=== PATIENT | male | born 1965 | race Two or more races ===

== ENCOUNTER 2017-02-11 21:59 | Inpatient (IN) | payer OTHER ==
[~2017-02-11] VITALS: Ht 180.3 cm; Wt 86.0 kg
--- NOTE | ~2017-02-11 | OR ---
Unit #: [id number] #: [id number] Patient: VIC ABDI [id number] [address] [place], [place] [address] [id number] MR#: [id number] NAME: VIC ABDI ROOM: [facility] Date of Procedure: 02/26/2017 Admission Date: 02/12/2017 Surgeon: Rich Catherine M.D. : 1965 Attending Physician: Hetal Vera M.D. OPERATIVE REPORT PREOPERATIVE DIAGNOSIS Left lower extremity wound, status post debridement for necrotizing fasciitis. POSTOPERATIVE DIAGNOSIS Left lower extremity wound, status post debridement for necrotizing fasciitis. PROCEDURES PERFORMED 1. Repeat application of Integra bilayer wound matrix, 11.5 x 9.5 cm. 2. Split-thickness skin grafting application x2, proximal measuring 11 x 9 cm and distal 10.5 x 5.5 cm. 3. Application of wound VAC to the left lower extremity, 26 x 11 cm. WATER TREATMENT SPECIALIST Montse Azul APRN, SAMINA ANESTHESIA General. ESTIMATED BLOOD LOSS Minimal. COMPLICATIONS None apparent. INDICATIONS FOR PROCEDURE Mr. Markham is a 51-year-old gentleman, who has undergone debridement for necrotizing fasciitis on the left lower extremity. This is now resulted in a transmetatarsal amputation with a large soft tissue defect. We had applied Integra at his last trip to the OR over areas of exposed tendon. We now returned to the OR for wound check and possible skin grafting. DESCRIPTION OF PROCEDURE The patient was identified in the preoperative holding area. The operative site was marked. The patient was brought to the operating room, and the patient was placed in a lateral decubitus position. Axillary roll was placed. All bony prominences were padded appropriately. The wound VAC was then removed from the left lower extremity. There appeared to be good adherence of the Integra bilayer except for one area in the posterolateral aspect of the wound. The leg was then prepped and draped Unit #: [id number] #: [id number] Patient: VIC ABDI in a sterile fashion. [place] were removed, and the silicone layer was removed from the Integra. We had good take of the Integra over approximately 60% of the surfaces. The areas of exposed tendon did not have take of the wound matrix, which remained adhered to the silicone bilayer. We were unable to salvage the Integra off the silicone membrane at these locations. The remaining wound was inspected. There was a beefy red granulation tissue both proximal and distal to the previous area of Integra application. These sites were ready for skin grafting. We elected to proceed with skin grafting both proximal and distal to the area of exposed tendon, then a repeat application of Integra over the exposed tendons. The thigh was prepped for skin grafting according to standard technique. A 2 inch guard was placed in a upad dermatome. The graft was harvested initially with a dermatome set at 0.14. This graft was quite thin, but usable. We then marked out another area on the thighs, we did the two areas of graft. The dermatome was then reset at 0.16. A second graft was harvested. This was more robust. Both grafts were meshed through the one-to-one mesher. One of the graft was then taken and placed at the most proximal area, and secured with a stapler around the periphery. The second graft was then taken and placed at the distal aspect of the wound. This was secured with a combination of odalys and 3-0 chromic sutures. We then turned our attention back to the midportion of the wound. The Integra bilayer was opened, which was rinsed and applied over the affected area. The Integra graft was trimmed to 11.5 cm x 9.5 cm. This was stapled in place along the periphery of the skin edge. The extra Integra was utilized distally in the wound to cover the small area, which we do not have a sufficient amount of skin for skin grafting. Adaptic was placed over this skin grafts. We then fashioned a wound VAC of the desired size and applied this over the skin graft and the Integra. Ioban was used to secure the wound VAC sponges. The suction pad was secured and hooked to the wound VAC machine. A good seal was achieved. The wound proximally was dressed with Xeroform, Telfa, and Tegaderm. DISPOSITION Aroused from anesthesia and stable to the recovery room. POSTOPERATIVE PLAN We will keep the wound VAC in place for one week to allow hopefully better incorporation of the Integra over the areas of exposed tendon. We will inspect the skin graft at that time as well. We will plan for return to the operating room next Friday. He may be discharged with a wound VAC in place to follow up with no wound VAC changes to be performed between now and next Friday. Dictated by... Charanjit Vora/kiki TD: 02/26/2017 10:55 JOB #: [id number] Unit #: [id number] #: [id number] Patient: VIC ABDI OPERATIVE REPORT Page 1 of 1 X Rich Catherine MD X PROCEDURE OPERATIVE NOTE
--- NOTE | ~2017-02-11 | A ---
[facility] Nutrition Therapy DATE: 02/24/17 Patient: VIC ABDI Physician: SANDEEP Address: [address] [place] [address] RD Room/Bed: [address] [place] [address], Zip: [place] [address] Admit Date: 02/12/17 Date of : [birth year] Height: 5 11 Weight: 189 86 NUTRITIONAL ASSESSMENT: REASON: LOS 51 y/o male admitted for wet gangrene (L) foot PMH: T2DM Anthropometrics: ht: 5'11" wt: 189# (86 kg) BMI 26 Labs: Cl- 99, Glu 152, Alb 2.4, Accuchecks 271, HgbA1c 9.5 Meds: novolog, levemir, zosyn, ferrous gluconate, zofran, NaCl I/O & Bowel function: 1640/2400. BM 02/23 Skin Integrity: surgical site/wound vac- LT foot Estimated Nutrition Needs: Increased 2' wound healing Assessment: Chart reviewed, events noted. Pt seen for LOS. Pt is colombian-speaking only. RD architecture internship visited pt at bedside and spoke with pt using translator interpreter phone. Pt reports having a good appetite and eating "anything and everything". Pt reports mostly eating out when he is at home. He does check his blood sugar "every so often". RD architecture internship provided written and verbal colombian diet education regarding type 2 diabetes nutrition therapy. Pt reported no questions at this time. RD will remain available. Dx: Uncontrolled type 2 diabetes r/t lifestyle, lack of nutrition education AEB accuchecks 252-271, HgbA1c 9.5 Intervention: 1. Diabetes diet education 2. Consistent carbohydrate diet Monitoring, Evaluation and Goals: 1. Weight; maintain healthy weight, prevent weight gain 2. Labs; glucose Recommendations: 1. Continue consistent carbohydrate diet. Encourage compliance of diet. 2. Follow diabetes nutrition therapy education given when d/c'd home. RD will f/u per protocol as pt is at mild nutritional risk. [facility] Nutrition Therapy DATE: 02/24/17 Patient: VIC ABDI Physician: SANDEEP Address: [address] [place] [address] RD Room/Bed: [address] [place] [address], Zip: [place] [address] Admit Date: 02/12/17 Date of : [birth year] Height: 5 11 Weight: 189 86 Respectfully, ULISES WILKERSON, Community Pharmacist Yang Polanco MS, RD, LD Food and Nutritional Services [facility] cc: client file
--- NOTE | ~2017-02-11 | HP ---
Unit #: [id number] #: [id number] Patient: VIC ABDI [id number] [address] [place], [place] [address] [id number] I MR#: [id number] NAME: VIC ABDI ROOM: 340 Age: 51 Sex: M Admission Date: 02/12/2017 : 1965 Attending Physician: Hetal Vera M.D. Primary Care Physician: No Primary Care Physician HISTORY AND PHYSICAL CHIEF COMPLAINT Wet gangrene of the left foot. HISTORY This pleasant 51-year-old type 2 diabetic male is admitted for wet gangrene of the left foot. About 5 days ago the patient "pinched" his left foot. I believe he was driving and was using a clutch, per the ER physician. Four days ago he began to experience redness of the left foot and, more recently, blackened areas over the dorsum of the left foot. Notes feeling feverish and sweaty with the above. He presented to this emergency department with a temperature of 101.3. On examination the patient has necrotic wound over the dorsum of the left forefoot but with purulent material also being expressed from the plantar surface of the left forefoot. X-ray shows large amount of subcutaneous gas. Labs are notable for sodium of 122, which corrects to about 128, as the patient's serum glucose is about 400. White blood count of 25.8. In the ER he was bolused with a liter of saline, given Zosyn and vancomycin, 8 units of IV regular insulin and Tylenol. A call was made to me to admit the patient for medical management, but also a call was made to orthopedic surgery, who will be seeing the patient this morning. PAST MEDICAL HISTORY 1. 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 2. Some sort of testicular surgery. ALLERGIES None. HOME MEDICATIONS The patient was taking an unknown antibiotic that he had at home. FAMILY HISTORY Negative for heart disease or diabetes. SOCIAL HISTORY The patient is originally from [place]. He is living alone. Stopped smoking about 20 days ago. Does not drink alcohol. REVIEW OF SYSTEMS Unit #: [id number] #: [id number] Patient: VIC ABDI Review of systems is difficult to obtain due to language barrier. PHYSICAL EXAMINATION GENERAL: Very pleasant 51-year-old male, currently in no acute distress. VITAL SIGNS: Temperature 101.3, pulse 114, respirations 16. Current blood pressure is 101/67, respirations 22, O2 saturation 99% on room air. HEENT: Eyes-PERRLA. Extraocular muscles are intact. Pharynx is benign. NECK: Supple without adenopathy or thyromegaly. CHEST: Clear. CARDIAC: Normal S1, S2 without murmur. ABDOMEN: Bowel sounds are present. No hepatosplenomegaly, tenderness or masses. EXTREMITIES: Notable for necrotic appearing wound over the dorsum of the left mid forefoot but extensive swelling and redness up into the lower calf region. There is also a purulent materia coming out of a wound over the plantar aspect of the left foot. Right foot without ulcers, good pedal pulse. NEUROLOGIC EXAM: The patient is awake, alert, oriented. Cranial nerves are intact. Equal strength throughout. DIAGNOSTIC STUDIES ADMISSION LABS: Hematocrit 35.1, white blood count of 25.8, normal platelet count. SMA-12 - Glucose is 377, sodium 122, which corrects to about 128. Chloride is 84. Albumin is 2.5. AST is 48, ALT 44, alkaline phosphatase 120. Lactic acid is pending. CARDIOVASCULAR: EKG - Sinus tachycardia, rate 115. IMAGING: X-ray of the left foot shows large collection of air dorsum of the foot and ankle. ASSESSMENT 1. Wet gangrene of the left foot with early sepsis. 2. Uncontrolled type 2 diabetes mellitus. 3. Hyponatremia. Sodium, however, actually corrects to 128. PLANS 1. Aggressive IV fluids. 2. Clindamycin, vancomycin and Zosyn. 3. Glucose control. 4. Orthopedic surgeon has been consulted and will be seeing the patient in the morning. Dictated by Charanjit Harrell/gabriella TD: 02/12/2017 07:52 JOB #: [id number] Unit #: [id number] #: [id number] Patient: VIC ABDI HISTORY AND PHYSICAL Page 1 of 1 X Kerry Fernandez MD X HISTORY AND PHYSICAL
--- NOTE | ~2017-02-11 | CO ---
Unit #: [id number] #: [id number] Patient: VIC ABDI [id number] [address] [place], [place] [address] [id number] I MR#: [id number] NAME: VIC ABDI ROOM: [facility] Age: 51 Sex: M Admission Date: 02/12/2017 : 1965 Attending Physician: Hetal Vera M.D. Primary Care Physician: No Primary Care Physician Consultation Date: 02/19/2017 CONSULTATION REPORT The patient was admitted to Dr. Hetal Vera. REASON FOR CONSULTATION Antibiotic management. HISTORY OF PRESENT ILLNESS This is a 51-year-old diabetic male who has uncontrolled blood sugars that was admitted to the hospital greater than one week ago after he had some discoloration in his foot. It initially became red and then became more blackened. This was over the top of his foot and he said that he felt he may have had some subjective fevers; however, he never took his temperature. Patient reports to me that he denied any trauma but did feel a pinching sensation on the bottom of his foot. When he came to the emergency room, he was noted to have a fever of greater than 101.3 degrees Fahrenheit. Patient also was noted to have a large necrotic wound with wet gangrene and was taken to the OR for necrotizing fasciitis. It appears patient was started on vancomycin, Zosyn, and clindamycin. He has had multiple organisms since that have been isolated including group F strep, MSSA, and enterobacter. Infectious disease was consulted for antibiotic management. Patient is currently awaiting repeat I and D of his wounds, possible transmetatarsal amputation and wound VAC change. PAST MEDICAL HISTORY 1. Diabetes approximately 11 years ago with peripheral neuropathy. 2. Per the chart, he had a testicular surgery. However, patient did not report this to me during our discussion. ALLERGIES No known allergies. MEDICATIONS The patient is currently on cefepime. For other medications, please refer to patient's MAR. SOCIAL HISTORY Patient is from [place], but currently lives in the [place]. He has no tobacco for approximately one month. He has no alcohol abuse or reports any IV drug use. REVIEW OF SYSTEMS Patient denies any current fevers, chills, headache, shortness of breath, nausea, vomiting, diarrhea, or pain at this time. PHYSICAL EXAMINATION Unit #: [id number] #: [id number] Patient: VIC ABDI VITAL SIGNS: Temperature (1) , pulse is 85, blood pressure 127/51, respiratory rate 16. GENERAL: This is a no apparent distress male who is resting in the bed comfortably. HEENT: His pupils are equal. NECK: Supple. CARDIOVASCULAR: S1, S2. Regular rate and rhythm. PULMONARY: Clear to auscultation bilaterally with no wheezes or rhonchi noted. ABDOMEN: Positive bowel sounds. Soft and nontender. EXTREMITIES: Left lower extremity currently in a wound VAC and ADILIA dressing. DIAGNOSTIC STUDIES LABORATORY: BUN 8, creatinine 0.6, sodium 135, potassium 4, chloride 99, CO2 of 29. Bilirubin 0.5, AST 48, ALT 44, alkaline phosphatase 120 on admission. Lactic acid is 1.2 White blood cell count 13.6, which is improved from 25.8 o admission. Hemoglobin 9.4, hematocrit 27.8, platelets 686,000. Sed rate is greater than 120. Urinalysis was negative. February 17 foot cultures were negative to date. February 12 foot culture and leg culture showed MSSA and group F strep. February 11 foot cultures grew enterobacter and MSSA. IMPRESSION This is a 51-year-old diabetic male, who presented one and a half days after he began with redness and skin changes in his left foot that began to become dark in appearance. The patient was admitted to the hospital and found to have wet gangrene to his left foot with necrotizing fasciitis. The patient has been in the OR multiple times and he has polymicrobial bacteria including MSSA and group F strep which appeared to be the most prominent organisms. Patient did have Enterobacter but this was done pre operating room and I am not sure the significance of this organism. The patient is well covered with cefepime at this time and he was covered with clindamycin upon admission. Patient appears to not be septic at this time. His white blood cell count has significantly improved. He has no current fever and his blood pressure is stable. Patient's pathology report, however, was consistent with gangrenous necrosis even at the surgical resection margins and patient is to go back to the operating room today. I am unclear if patient may have osteomyelitis. At this time, will continue cefepime. Anticipate that patient may need four to six weeks of antibiotic therapy but more will be determined after discussion with orthopedics and surgery today. This case will be discussed with Dr. Jose Low. He will evaluate this patient today. Patient's history and exam was done via the per diem interpreter phone with ID #[id number]. Thank you for allowing us to participate in the care of this patient and further recommendations to follow pending patient's clinical course. Dictated by... Yesy Cotter A.P.R.N. [facility]/irineo TD: 02/19/2017 10:17 Unit #: [id number] #: [id number] Patient: VIC ABDI JOB #: [id number] CONSULTATION REPORT Page 1 of 1 X X CONSULTATION REPORT
--- NOTE | ~2017-02-11 | OR ---
Unit #: [id number] #: [id number] Patient: VIC ABDI [id number] [address] [place], [place] [address] [id number] I MR#: [id number] NAME: VIC ABDI ROOM: [facility] Date of Procedure: 02/14/2017 Admission Date: 02/12/2017 Surgeon: Rich Catherine M.D. : 1965 Attending Physician: Hetal Vera M.D. OPERATIVE REPORT PREOPERATIVE DIAGNOSES Left foot and distal tibia necrotizing fasciitis, status post excisional debridement. POSTOPERATIVE DIAGNOSES Left foot and distal tibia necrotizing fasciitis, status post excisional debridement. PROCEDURES PERFORMED 1. Repeat sharp excisional debridement to fascia, left lower extremity. 2. Decompression of recurrent plantar abscess. 3. Application of wound VAC, 34 x 10 cm. STAMPING MACHINE OPERATOR Montse Azul. ANESTHESIA General. ESTIMATED BLOOD LOSS 15 mL. DRAINS Wound VAC to 125 mmHg. COMPLICATIONS None apparent. INDICATIONS FOR PROCEDURE Mr. Markham is a 51-year-old gentleman with gas gangrene or necrotizing fasciitis of the left lower extremity. He has undergone an excision and debridement leaving a large residual soft tissue defect. He now returns to the operating room for repeat debridement and wound VAC change. DESCRIPTION OF PROCEDURE The patient was identified in the preoperative holding area. The operative site was marked. The patient was brought to the operating room and placed supine on the operating table. A general anesthetic was induced. The wound VAC was removed. The left leg was prepped and draped in sterile fashion. The wound was irrigated with sterile saline via pulsatile lavage. The Unit #: [id number] #: [id number] Patient: VIC ABDI excisional debridement was performed with Metzenbaum scissors down to level of fascia. Minimal further debridement was required. Note is made of the fourth digit at this point has appeared dusky and likely nonviable. I was able to express purulent fluid still from the plantar aspect of the foot. Metzenbaum scissors were passed into the plantar space and decompressed the abscess. We obtained a small amount of purulent or cloudy fluid, but was much improved from his initial operation. Once we had adequately debrided away all necrotic and nonviable tissue, a new wound VAC was placed utilizing 2 silver VAC sponges, wound VAC size was 34 x 10 cm. DISPOSITION Aroused from anesthesia and transported to the recovery room in stable condition. POSTOPERATIVE PLAN The patient will require repeat debridement. His fourth toe, we will continue to observe, but likely will need fourth toe amputation. In this instance, we will likely proceed with resection of at least the remaining lateral digits and possibly even a transmetatarsal amputation in the future. However, his lower extremity may be salvageable and amenable to grafting. We will continue to follow the evolution of his wound. Dictated by... Rich Catherine M.D. CEDRIC/kiki TD: 02/15/2017 08:01 JOB #: [id number] OPERATIVE REPORT Page 1 of 1 X Rich Catherine MD PROCEDURE OPERATIVE NOTE
--- NOTE | ~2017-02-11 | CR72 ---
[facility] A Service of [facility] RADIOLOGY TEXT RESULTS PATIENT: VIC ABDI LOCATION: [facility] 340-01 : [birth year] UNIT #: [id number] AGE: [address]: Kerry Fernandez MD SEX: M ORDER DR: [id number] [facility] [address]. [place], [place] [address] [id number] I MR#: [id number] Acc #: [id number] NAME: VIC ABDI : 1965 SEX: M STUDY DATE/TIME: 02/11/2017 23:20 UNIT: CEDOF ROOM: [id number] STUDY DESCRIPTION: CR Chest Single View Portable Attending Physician: Kerry Fernandez M.D. Ordering Physician: Gerardo Baugh M.D. Primary Care Physician: Primary Care Physician No MEDICAL IMAGING REPORT This report is preliminary unless electronic signature is present EXAM Portable chest INDICATIONS Shortness of air for 4 days. FINDINGS A portable view of the chest was obtained. The heart size and vascularity are normal and the lungs are clear. The bones are unremarkable. IMPRESSION No active disease. Dictated by... Fer Spangler M.D. THIS IS AN ELECTRONICALLY VERIFIED REPORT Fer Spangler M.D. at 02/12/2017 5:49 AM FEL/anitha TD: 02/12/2017 02:55 JOB #: [id number] MEDICAL IMAGING REPORT Page 1 of 1 COPY
--- NOTE | ~2017-02-11 | CR126 ---
[facility] A Service of [facility] RADIOLOGY TEXT RESULTS PATIENT: VIC ABDI LOCATION: A 340-01 : [birth year] UNIT #: [id number] AGE: [address]: Kerry Fernandez MD SEX: M ORDER DR: [id number] [facility] [address] [facility]. [place], [place] [address] [id number] I MR#: [id number] Acc #: [id number] NAME: VIC ABDI : 1965 SEX: M STUDY DATE/TIME: 02/11/2017 23:22 UNIT: CEDOF ROOM: [facility] STUDY DESCRIPTION: CR Foot Complete Min 3 View Lt Attending Physician: Kerry Fernandez M.D. Ordering Physician: Gerardo Baugh M.D. Primary Care Physician: Primary Care Physician No MEDICAL IMAGING REPORT This report is preliminary unless electronic signature is present EXAM Left foot INDICATION Left foot pain with diabetic wound in foot, symptoms for 4 days. FINDINGS 3 views of the left foot were obtained. There is a large amount of abnormal air in the dorsal soft tissues of the foot and ankle. The air is in multiple levels. It extends over an area of at least 16-17 cm in length. There is soft tissue swelling. The bones are normal. IMPRESSION Large collection of air in the subcutaneous tissue of the dorsum of the foot and ankle consistent with an infection. The bones are unremarkable. Dictated by... Fer Spangler M.D. THIS IS AN ELECTRONICALLY VERIFIED REPORT Fer Spangler M.D. at 02/12/2017 5:49 AM LALIT/teri TD: 02/12/2017 02:54 JOB #: [id number] MEDICAL IMAGING REPORT Page 1 of 1 COPY
--- NOTE | ~2017-02-11 | OR ---
Unit #: [id number] #: [id number] Patient: VIC WAGNER [id number] [address] [place], [place] [address] [id number] I MR#: [id number] NAME: VIC WAGNER ROOM: 340 Date of Procedure: 02/12/2017 Admission Date: 02/12/2017 Surgeon: Rich Catherine M.D. : 1965 Attending Physician: Hetal Vera M.D. Primary Care Physician: Primary Care Physician No OPERATIVE REPORT PREOPERATIVE DIAGNOSES 1. Left foot wet gangrene. 2. Ascending necrotizing fasciitis. POSTOPERATIVE DIAGNOSES 1. Left foot wet gangrene. 2. Ascending necrotizing fasciitis. 3. Deep plantar intermetatarsal abscesses. 4. Infectious extensor tenosynovitis. PROCEDURES PERFORMED 1. Left third toe metatarsophalangeal joint disarticulation. 2. Sharp excisional debridement of foot and distal leg down to the fascia. 3. Irrigation and debridement of multiple forefoot abscesses including plantar and intermetatarsal abscesses. 4. Application of wound VAC measuring 34 cm x 10 cm. ELEMENTARY SCHOOL PRINCIPAL ANESTHESIA General. ESTIMATED BLOOD LOSS 50 mL. COMPLICATIONS None apparent. DRAINS Wound VAC to 125 mmHg. INDICATIONS FOR PROCEDURE Mr. Wagner is a 51-year-old gentleman with nearly 1-week history of progressive erythema and eventually a necrotic and bullous changes to the left foot and distal tibia. He noted a wound on which became progressively red over the weekend. He then notes that this was becoming black and necrotic appearing yesterday. He states that it began rapidly progressing over the past 24 hours and even this morning becoming progressively necrotic with then blistering changes over the foot. His plain film radiographs demonstrated gas-forming organism up to the mid Unit #: [id number] #: [id number] Patient: VIC WAGNER distal tibia. Overall appearance is consistent with gas-forming organism and ascending necrotizing fasciitis. He had extensive necrosis of the forefoot with a large area, which was then essentially encompassing the entirety of the forefoot which was not necrotic and extending to a wound on the plantar aspect of the third toe. We discussed incision and debridement of all necrotic nonviable tissue as indicated. He elected to proceed. DESCRIPTION OF PROCEDURE The patient was identified in the preoperative holding area. The operative site was marked. The patient was brought to the operating room and placed supine on the operating table. He was already on standing IV antibiotics. General anesthetic was induced. The left leg was prepped and draped in sterile fashion. A tourniquet was not employed. The skin incision was marked out. This initially started with excising area around the dorsum of the foot and the third toe. This was going to include essentially of third toe MTP joint disarticulation. The skin was incised sharply and a large ellipse utilized to excise all the clearly necrotic tissue. The third toe was dissected down to the MTP joint sharply with a 10-blade knife. Immediately upon incising the skin, there was a large volume of purulent fluid emanating from the subcutaneous tissues. The skin and subcutaneous tissues were clearly necrotic and purulent. The third toe was again was disarticulated at the MTP joint, passed off the operative field. The skin, subcu, and fascia were excised over the dorsum of the foot, passed off. We then carried this ellipse into an incision up the proximal lateral distal leg. All along this tract, we encountered purulent fluid and clearly necrotic changes through the subcutaneous tissues and fascia. The wound was further inspected. Medial and lateral to our area of initial excision, there was clearly dusky, but frankly essentially necrotic skin. This was excised back to healthy border, which eventually encompassed the entirety again of the dorsum of the forefoot. We took our excision gradually excising skin until we encountered more normal healthy-appearing tissue free from necrotic changes. The fascia was excised as needed up the distal tibia as well. The common extensors were necrotic. There was extensor tenosynovitis and fluctuance extending up to the extensors. These were excised where necessary. The extensor retinaculum was involved as well and was removed leaving exposed extensor tendons. We carried this around the posterolateral aspect as far as necessary. Once we completed our debridement, we opened further plantarly on the foot and opened the foot over the third metatarsal. There were still abscess and fluctuance on the plantar aspect of foot. This was decompressed. There was intermetatarsal abscesses and purulence, which was decompressed as well. Once we had adequately excised all necrotic nonviable tissue, the wound was irrigated with pulsatile lavage. The overall appearance was greatly improved, but left with a large soft tissue defect measuring 34 cm from the plantar foot up over the third metatarsal up to the distal extent of the leg. It measured 10 cm from medial to lateral. A wound VAC was then fashioned to the desired size and shape. Stapler was used to help provisionally stabilized the wound VAC against the skin edges and multiple wound VAC sponges to one another. We utilized two large silver impregnated dressing sponges. Ioban dressing was used to seal the wound. The wound VAC suction pad was then attached and the machine hooked up. We achieved a good seal in the seal check. The leg was then wrapped with an Otto wrap. DISPOSITION Stable to recovery room. Unit #: [id number] #: [id number] Patient: VIC WAGNER POSTOPERATIVE PLAN He will require repeat I and D and wound VAC change on Friday. We discussed with them that it is likely that he may need a below-knee amputation. If his limb is preservable, it will likely require extensive grafting sacrificed during the initial debridement. Dictated by... Charanjit Vora/kiki TD: 02/13/2017 16:27 JOB #: [id number] OPERATIVE REPORT Page 1 of 1 X Rich Catherine MD X PROCEDURE OPERATIVE NOTE
--- NOTE | ~2017-02-11 | CR72 ---
[facility] A Service of [facility] RADIOLOGY TEXT RESULTS PATIENT: VIC ABDI LOCATION: A : [birth year] UNIT #: [id number] AGE: [address]: Hetal Vera MD SEX: M ORDER DR: [id number] [place], [place] [address] [id number] I MR#: [id number] Acc #: [id number] NAME: VIC ABDI : 1965 SEX: M STUDY DATE/TIME: 02/15/2017 13:49 UNIT: A ROOM: [facility] STUDY DESCRIPTION: CR Chest Single View Portable Attending Physician: Hetal Vera M.D. Ordering Physician: Hetal Vera M.D. Primary Care Physician: No Primary Care Physician MEDICAL IMAGING REPORT This report is preliminary unless electronic signature is present EXAM Single view chest INDICATIONS Shortness of air for 8 days. FINDINGS Single portable AP view of the chest compared to 02/11/2017. Heart and mediastinal contours are unchanged and lung volumes are low. No focal consolidation. IMPRESSION Low lung volumes; however, no acute findings. Dictated by... Pedro Luis Winters M.D. THIS IS AN ELECTRONICALLY VERIFIED REPORT Pedro Luis Winters M.D. at 02/16/2017 5:13 PM ELDA/rosie TD: 02/15/2017 17:44 JOB #: [id number] MEDICAL IMAGING REPORT Page 1 of 1 COPY
--- NOTE | ~2017-02-11 | TOC ---
Unit #: [id number] #: [id number] Patient: VIC ABDI [id number] [address] [address] [id number] I MR#: [id number] NAME: VIC ABDI ROOM: [facility] Age: 51 Sex: M Admission Date: 02/12/2017 : 1965 Attending Physician: Hetal Vera M.D. TRANSFER OF CARE SUMMARY PRINCIPAL DIAGNOSES 1. Sepsis secondary to polymicrobial left foot and leg wet gangrene with associated necrotizing fasciitis. Causative organisms include MSSA group F streptococcus and Enterobacter cloacae. 2. Diabetes mellitus type 2, uncontrolled, with hemoglobin A1c of 9.5. 3. Diabetic peripheral neuropathy. 4. Hyponatremia, now resolved. 5. Hypokalemia. 6. Iron deficiency anemia. 7. Thrombocytosis secondary to iron deficiency anemia in combination with a reactive component. 8. Fever secondary to atelectasis. 9. Moderate protein malnutrition. 10. Mild transaminitis. 11. Mild vitamin B12 deficiency with a vitamin B12 level of 332. CONSULTANTS 1. Dr. Catherine, Orthopedic Surgery. 2. Dr. Low, Infectious Disease. PROCEDURES 1. Left third toe metatarsophalangeal joint disarticulation, sharp excisional debridement of foot and distal leg down to fascia, irrigation and debridement of multiple forefoot abscesses including plantar and intermetatarsal abscesses, and application of wound V.A.C. measuring 34 x 10 cm on February 12, 2017. 2. Sharp excisional debridement to fascia of the left lower extremity, decompression of recurrent plantar abscess, and application of wound V.A.C. 34 x 10 cm on February 14, 2017. 3. Left fourth and fifth toe metatarsophalangeal disarticulation, debridement of skin and subcutaneous tissue, and wound V.A.C. change of 34 x 10 cm on February 17, 2017 4. Left foot transmetatarsal amputation and left lower extremity wound V.A.C. 30 x 10 cm on February 19, 2017. 5. Debridement to fascia of left lower extremity including extensor tendons and extensor retinaculum, application of Integra bilayer wound matrix measuring 12.5 x 8 cm and wound V.A.C. application 28.5 x 8 cm on February 21, 2017. 6. Chest x-ray on February 11, 2017, without acute findings. 7. X-ray of left foot on February 11, 2017, with a large collection of air in the subcutaneous tissue in the dorsum of the foot and ankle. 8. Chest x-ray on February 15, 2017, with low lung volumes. CLINICAL HISTORY AND HOSPITAL COURSE Unit #: [id number] #: [id number] Patient: VIC ABDI is a 51-year-old , [place]er-speaking only male, who presented with swelling and redness of his left foot. Prior to presentation, this redness was associated with a blackening over the dorsal aspect of the foot. In the emergency department, patient was found to be febrile and have a white blood cell count greater than 25%. He was also found to be hyponatremic and his serum glucose was greater than 400. Patient was subsequently admitted. Patient's wound was examined again the next day, and patient was having ascending gas formation of the left lower extremity with worsening necrosis of associated skin. Dr. Catherine was called emergently, and patient subsequently underwent the first of multiple I and Ds of the wound. Intraoperative cultures grew MSSA Enterobacter cloacae and group F strep. Antibiotics were changed to cefepime for a while, and ultimately Infectious Disease was consulted given concern about perhaps some underlying osteomyelitis. Patient has been changed back to Zosyn with plans for continued IV antibiotics for at least two weeks given patient currently has exposed tendon. I will note, patient underwent multiple I and Ds during hospitalization and ultimately required transmetatarsal amputation due to infection of his associated toes. Pathology for this amputation is currently pending. The plan is for patient to be maintained with Integra for the next five days and ultimately to have skin graft placed on February 26 of next week. As noted above, the patient was hyperglycemic upon presentation and has uncontrolled diabetes. He has been maintained on insulin here, and sugars have been relatively stable. Patient was also found to have iron deficiency anemia in combination with some thrombocytosis. Hemoglobin for the most part has been stable, and he will be maintained on iron supplementation. I will note, his thrombocytosis has worsened throughout hospitalization, but I suspect this is reactive and can be followed closely. He has been maintained on DVT prophylaxis. Patient was hyponatremic as noted above, but this resolved with IV hydration and improved sugar control. Further hospital course to be dictated as an addendum. Dictated by... Hetal Vera M.D. EVE/coco TD: 02/23/2017 22:04 JOB #: [id number] Unit #: [id number] #: [id number] Patient: ABDI,RAUL TRANSFER OF CARE SUMMARY Page 1 of 1 X Hetal Vera MD X TRANSFER OF CARE SUMMARY
--- NOTE | ~2017-02-11 | OR ---
Unit #: [id number] #: [id number] Patient: VIC ABDI [id number] [address] [address] [id number] I MR#: [id number] NAME: VIC ABDI ROOM: [facility] Date of Procedure: 02/12/2017 Admission Date: 02/12/2017 Surgeon: Rich Catherine M.D. : 1965 Attending Physician: Hetal Vera M.D. Primary Care Physician: Primary Care Physician No OPERATIVE REPORT ADDENDUM The patient underwent sharp excisional debridement down to the level of fascia across the entirety of the wound utilizing a 15-blade knife as well as rongeurs and Metzenbaum scissors. The size of the debrided area was a 34 x 10 cm. For further details, please see the previously dictated full operative report. Dictated by... Charanjit Vora/kiki TD: 02/21/2017 15:38 JOB #: [id number] OPERATIVE REPORT Page 1 of 1 X Rich Catherine MD X PROCEDURE OPERATIVE NOTE
--- NOTE | ~2017-02-11 | EKG ---
PATIENT: VIC ABDI UNIT #: [id number] Ventricular Rate: 102 BPM Atrial Rate: 102 BPM P-R Interval: 146 ms QRS Duration: 106 ms Q-T Interval: 346 ms QTC Calculation(Bezet): 450 ms P [place]: 68 degrees Calculated R [place]: 70 degrees Calculated T [place]: 47 degrees Diagnosis Line: Sinus tachycardia Diagnosis Line: Incomplete right bundle branch block Diagnosis Line: Borderline ECG Diagnosis Line: Diagnosis Line: Confirmed by CARLOS WALTERS MD ([id number]) on Diagnosis Line: 02/13/2017 10:39:27 AM INTERPRETING MD: SELENA DOCKERY
--- NOTE | ~2017-02-11 | OR ---
Unit #: [id number] #: [id number] Patient: VIC ABDI [id number] [address] [place], [place] [address] [id number] I MR#: [id number] NAME: VIC ABDI ROOM: [facility] Date of Procedure: 02/19/2017 Admission Date: 02/12/2017 Surgeon: Rich Catherine M.D. : 1965 Attending Physician: Hetal Vera M.D. OPERATIVE REPORT PREOPERATIVE DIAGNOSES 1. Left foot and lower extremity necrotizing fasciitis. 2. Residual large soft tissue defect over the dorsum of the foot and distal tibia secondary to the above. 3. Dry gangrene, left second toe. 4. Exposed bone of third and fourth metatarsal heads. PROCEDURES PERFORMED 1. Left foot transmetatarsal amputation. 2. Left lower extremity wound VAC change 30 x 10 cm. DONOR CENTER TECHNICIAN Sixto Macedo, PGY-2. INDICATIONS FOR PROCEDURE Mr. Markham returns to the operating room today for repeat debridement and wound VAC change. We also discussed a transmetatarsal amputation. At his last debridement, he underwent resection of the remaining lateral digits including the 4th and 5th toes. He now has dry gangrene of the second toe as he will only have the hallux left. We have now discussed the transmetatarsal amputation, which allows to address the exposed bone over the metatarsal heads as well. He elected to proceed. DESCRIPTION OF PROCEDURE The patient was identified in the preoperative holding area. The operative site was marked. The patient was brought to the operating room and placed supine on the operating table. He is on standing antibiotics. The wound VAC was removed. The left leg was prepped and draped in sterile fashion. The wound bed was healthy and clean. No further debridement of skin or fascia was required. He has good granulation tissue over the majority of the wound from the extensor tendons. He has exposed bone as noted above in the third and fourth metatarsal heads. The second toe was initially disarticulated through the MTP joint direct visualization of the MTP joint itself. This was then passed off the operative field. A hallux MTP joint disarticulation was then performed as well. We then exposed the visual metatarsal shafts. A small microsagittal saw was used to perform an osteotomy along the metatarsal shaft of each digit bevelling these in a plantar direction. The metatarsals were then released from soft tissue and passed off the Unit #: [id number] #: [id number] Patient: VIC ABDI operative field. The sesamoids were removed as well. Soft tissue was debrided in the plantar flap. We were able to loosely close our previous split in the plantar soft tissue with 2 nylon sutures. obtain some coverage over the metatarsals now with the plantar skin. This was loosely tacked to the dorsum of the foot as well. We then fashioned a wound VAC to fit the wound, which measured 30 x 10 cm. The wound VAC was sealed with Ioban and suction pad attached. We achieved a good seal. The leg was then covered with an Otto wrap. DISPOSITION Stable to the recovery room. PLAN He will return to the operating room on Friday for repeat wound check and wound VAC change and possible placement of Integra skin graft substitute over the exposed extensor tendons. Dictated by... Charanjit Vora/kiki TD: 02/20/2017 11:35 JOB #: [id number] OPERATIVE REPORT Page 1 of 1 X Rich Catherine MD X PROCEDURE OPERATIVE NOTE
--- NOTE | ~2017-02-11 | OR ---
Unit #: [id number] #: [id number] Patient: VIC ABDI [id number] [address] [address] [id number] I MR#: [id number] NAME: VIC ABDI ROOM: [facility] Date of Procedure: 02/21/2017 Admission Date: 02/12/2017 Surgeon: Rich Catherine M.D. : 1965 Attending Physician: Hetal Vera M.D. Primary Care Physician: Primary Care Physician No OPERATIVE REPORT PREOPERATIVE DIAGNOSES 1. Status post left lower extremity debridement for necrotizing fasciitis. 2. Residual left leg wound 28.5 x 8 cm secondary to the above. POSTOPERATIVE DIAGNOSES 1. Status post left lower extremity debridement for necrotizing fasciitis. 2. Residual left leg wound 28.5 x 8 cm secondary to the above. PROCEDURES PERFORMED 1. Debridement to fascia in the left lower extremity including extensor tendons and extensor retinaculum. 2. Application of Integra bilayer wound matrix, 12.5 x 8 cm. 3. Wound VAC application, 28.5 x 8 cm. CONCRETE WORKER Montse Azul. ANESTHESIA General. ESTIMATED BLOOD LOSS Minimal. COMPLICATIONS None apparent. IMPLANTS Integra bilayer wound matrix 12.5 x 10 cm, trimmed down to 12.5 x 8 cm. INDICATIONS FOR PROCEDURE Mr. Markham returns to the operating room today for planned repeat debridement and application of an Integra over areas of exposed extensor tendon and extensor retinaculum. He is status post transmetatarsal amputation at his last operative intervention. DESCRIPTION OF PROCEDURE The patient was identified in the preoperative holding area. The operative site was marked. The patient on standing IV antibiotics. He was brought to the operating room and placed supine on the operating table. A general anesthetic was induced. The wound VAC was removed. The wound was inspected. The areas which were closed previously on the TMA were healing well. The flap has good adherence to the underlying soft Unit #: [id number] #: [id number] Patient: VIC ABDI tissues, where we have brought this plantar flap up over the metatarsals on the dorsum of the foot. There was good granulation tissue throughout the wound. There was mild fibrinous exudative type debris over the extensor tendons and extensor retinaculum. This was debrided with curettes, Metzenbaum scissors, and rongeur. The Integra bilayer was then opened and rinsed to remove the storage solution. The wound was irrigated with sterile saline via bulb lavage. The graft was stapled in place around its periphery covering all exposed extensor tendons. Wound VAC at the desired size and then fashioned to fit the affected area again measured 28.5 x 8 cm. This was sealed with Ioban. The suction pad was attached and hooked up to the wound VAC at 100 mmHg suction. Good seal was achieved. DISPOSITION Stable to the recovery room. Dictated by... Rich Catherine M.D. CEDRIC/kiki TD: 02/21/2017 11:56 JOB #: [id number] OPERATIVE REPORT Page 1 of 1 X Rich Catherine MD PROCEDURE OPERATIVE NOTE
--- NOTE | ~2017-02-11 | OR ---
Unit #: [id number] #: [id number] Patient: VIC ABDI [id number] [address] [place], [place] [address] [id number] I MR#: [id number] NAME: VIC ABDI ROOM: [facility] Date of Procedure: 03/05/2017 Admission Date: 02/12/2017 Surgeon: Rich Catherine M.D. : 1965 Attending Physician: Hetal Vera M.D. Primary Care Physician: Primary Care Physician No OPERATIVE REPORT PREOPERATIVE DIAGNOSIS Left distal tibia wound from necrotizing fasciitis debridement. POSTOPERATIVE DIAGNOSIS Left distal tibia wound from necrotizing fasciitis debridement. PROCEDURES PERFORMED 1. Excisional debridement of skin and subcutaneous tissue of the left distal tibia and foot wound. 2. Wound VAC application, 26 x 9 cm. LIVESTOCK TRADER Montse Azul APRN, SAMINA ANESTHESIA General. ESTIMATED BLOOD LOSS Negligible. COMPLICATIONS None apparent. DRAINS Wound VAC to 100 mmHg. INDICATIONS FOR PROCEDURE Mr. Markham is a 51-year-old gentleman with a large residual left lower extremity and foot wound, status post debridement for necrotizing fasciitis. He has undergone skin grafting and Integra application one week ago. He now returns today for check of the skin graft and possible skin grafting over the Integra. DESCRIPTION OF PROCEDURE The patient was identified in the preoperative holding area. The operative site was marked. The patient was brought to the operating room, and placed supine on the operating table. He was placed in a semi-lateral position with a bump underneath the affected extremity. The wound VAC was removed. Then, the left leg was prepped and draped in sterile fashion. There was 100% take of the skin graft. This was well fixed to the underlying tissue with no evidence of necrosis. The Integra demonstrates Unit #: [id number] #: [id number] Patient: VIC ABDI early incorporation, but still areas of concern over the exposed tendons. The Integra was not quite ready for removal of the silicone membrane in skin grafting today's inspection. Distally, at the site of the transmetatarsal amputation, there still remained some poor healing of the skin incision, particularly the longitudinal split on the plantar aspect of the foot. There were some questionable necrotic-appearing tissue, which was debrided with curettes and rongeurs. The plantar aspect of the foot was extensively probed, and there were no loculated fluid collections. There was no purulence or any evidence of recurrent abscess formation. The decision was made to apply a new wound VAC over the entirety of the wound, and return to the operating room next week. The wound VAC sponges were opened and fashioned to fit the wound. These were secured in place with the Ioban dressing. The suction trackpad was attached. This was hooked to the patient's portable wound VAC machine, and a good seal was achieved. The wound VAC area was 26 x 9 cm. DISPOSITION Stable to the recovery room. POSTOPERATIVE PLAN He will return to the operating room in 1 weeks' time for a repeat check of the Integra wound matrix bilayer. If ready, at that point, we will plan to remove the silicone membrane and proceed with skin grafting. Dictated by... Charanjit Vora/kiki TD: 03/05/2017 13:44 JOB #: [id number] OPERATIVE REPORT Page 1 of 1 X Rich Catherine MD X PROCEDURE OPERATIVE NOTE
--- NOTE | ~2017-02-11 | OR ---
Unit #: [id number] #: [id number] Patient: VIC ABDI [id number] [address] [place], [place] [address] [id number] I MR#: [id number] NAME: VIC BADI ROOM: [facility] Date of Procedure: 02/17/2017 Admission Date: 02/12/2017 Surgeon: Rich Catherine M.D. : 1965 Attending Physician: Hetal Vera M.D. Primary Care Physician: Primary Care Physician No OPERATIVE REPORT PREOPERATIVE DIAGNOSES 1. Left lower extremity necrotizing fasciitis, status post debridement. 2. Dry gangrene of left fourth and fifth toes. 3. Skin and subcutaneous necrosis adjacent to prior debridement. POSTOPERATIVE DIAGNOSES 1. Left lower extremity necrotizing fasciitis, status post debridement. 2. Dry gangrene of left fourth and fifth toes. 3. Skin and subcutaneous necrosis adjacent to prior debridement. PROCEDURES PERFORMED 1. Left fourth and fifth toe metatarsophalangeal joint disarticulation. 2. Debridement of skin and subcutaneous tissue. 3. Wound VAC change 34 x 10 cm. SAMPLE CHECKER Montse Azul. ANESTHESIA General. ESTIMATED BLOOD LOSS 20 mL. COMPLICATIONS None apparent. DRAINS Wound VAC x1. INDICATIONS FOR PROCEDURE Mr. Markham returns to the OR for repeat debridement and VAC change. His fourth and fifth toes are appearing dusky and necrotic and amputation is indicated. DESCRIPTION OF PROCEDURE The patient was identified in the preoperative holding area. The operative site was marked. Discussion was had again with the patient regarding the exact nature of the amputation. He elected to proceed. He was brought to the operating room and placed supine on the operating table. A general anesthetic was induced. The previous wound VAC was Unit #: [id number] #: [id number] Patient: VIC ABDI removed. The leg prepped and draped in sterile fashion. There was a small amount of progressive skin necrosis both along the medial and lateral aspects of the wound. This was debrided particularly on the medial side, there was some still purulent fluid in the fascia and subcutaneous tissue. This was excised with a 15-blade knife. The skin and subcutaneous tissues were debrided on the posterior edge of the incision as well. Attention was then turned to the fourth and fifth digits. The fourth toe was easily disarticulated through the MTP joint as the third toe was already absent and the wound was opened at this level. Once we had removed the fourth toe, dissection was carried laterally to the fifth toe MTP joint and the toe was disarticulated. The incision was then completed. The second toe at this point appears dusky as well. The metatarsal head of the third and fourth toes are exposed and he ultimately will require conversion to a transmetatarsal amputation in the future. The wound was irrigated and remainder of the wound was healthy with good early granulation tissue present. There remains exposed tendon and extensor retinaculum. A new wound VAC of the desired size was fashioned measuring again 34 x 10 cm in length and width. There was no tunneling. The VAC was applied and a good seal achieved. The patient was then aroused from anesthesia. DISPOSITION Stable to the recovery room. POSTOPERATIVE PLAN He will return Friday for transmetatarsal amputation and VAC change. At that point, hopefully the resection level will be stable and we can turn attention toward future grafting and the wound coverage. Dictated by... Charanjit Vora/kiki TD: 02/19/2017 06:00 JOB #: [id number] OPERATIVE REPORT Page 1 of 1 X Rich Catherine MD PROCEDURE OPERATIVE NOTE
--- NOTE | ~2017-02-11 | TOC ---
Unit #: [id number] #: [id number] Patient: VIC ABDI [id number] [address] [address] [id number] I MR#: [id number] NAME: VIC ABDI ROOM: [facility] Age: Sex: M Admission Date: 02/12/2017 : 1965 Attending Physician: Hetal Vera M.D. Primary Care Physician: No Primary Care Physician TRANSFER OF CARE SUMMARY PRINCIPAL DIAGNOSES 1. Sepsis secondary to polymicrobial left foot and leg wet gangrene with associated necrotizing fasciitis. Causative organisms include MSSA group F streptococcus and Enterobacter cloacae. 2. Diabetes mellitus type 2, uncontrolled, with hemoglobin A1c of 9.5. 3. Diabetic peripheral neuropathy. 4. Hyponatremia, now resolved. 5. Hypokalemia. 6. Iron deficiency anemia. 7. Thrombocytosis secondary to iron deficiency anemia in combination with a reactive component. 8. Fever secondary to atelectasis. 9. Moderate protein malnutrition. 10. Mild transaminitis. 11. Mild vitamin B12 deficiency with a vitamin B12 level of 332. CONSULTANTS 1. Dr. Catherine, Orthopedic Surgery. 2. Dr. Low, Infectious Disease. PROCEDURES 1. Left third toe metatarsophalangeal joint disarticulation, sharp excisional debridement of foot and distal leg down to fascia, irrigation and debridement of multiple forefoot abscesses including plantar and intermetatarsal abscesses, and application of wound V.A.C. measuring 34 x 10 cm on February 12, 2017. 2. Sharp excisional debridement to fascia of the left lower extremity, decompression of recurrent plantar abscess, and application of wound V.A.C. 34 x 10 cm on February 14, 2017. 3. Left fourth and fifth toe metatarsophalangeal disarticulation, debridement of skin and subcutaneous tissue, and wound V.A.C. change of 34 x 10 cm on February 17, 2017 4. Left foot transmetatarsal amputation and left lower extremity wound V.A.C. 30 x 10 cm on February 19, 2017. 5. Debridement to fascia of left lower extremity including extensor tendons and extensor retinaculum, application of Integra bilayer wound matrix measuring 12.5 x 8 cm and wound V.A.C. application 28.5 x 8 cm on February 21, 2017. 6. Chest x-ray on February 11, 2017, without acute findings. 7. X-ray of left foot on February 11, 2017, with a large collection of air in the subcutaneous tissue in the dorsum of the foot and ankle. 8. Chest x-ray on February 15, 2017, with low lung volumes. CLINICAL HISTORY AND HOSPITAL COURSE Unit #: [id number] #: [id number] Patient: VIC ABDI is a 51-year-old , Kuwaiti-speaking only male, who presented with swelling and redness of his left foot. Prior to presentation, this redness was associated with a blackening over the dorsal aspect of the foot. In the emergency department, patient was found to be febrile and have a white blood cell count greater than 25%. He was also found to be hyponatremic and his serum glucose was greater than 400. Patient was subsequently admitted. Patient's wound was examined again the next day, and patient was having ascending gas formation of the left lower extremity with worsening necrosis of associated skin. Dr. Catherine was called emergently, and patient subsequently underwent the first of multiple I and Ds of the wound. Intraoperative cultures grew MSSA Enterobacter cloacae and group F strep. Antibiotics were changed to cefepime for a while, and ultimately Infectious Disease was consulted given concern about perhaps some underlying osteomyelitis. Patient has been changed back to Zosyn with plans for continued IV antibiotics for at least two weeks given patient currently has exposed tendon. I will note, patient underwent multiple I and Ds during hospitalization and ultimately required transmetatarsal amputation due to infection of his associated toes. Pathology for this amputation is currently pending. The plan is for patient to be maintained with Integra for the next five days and ultimately to have skin graft placed on February 26 of next week. As noted above, the patient was hyperglycemic upon presentation and has uncontrolled diabetes. He has been maintained on insulin here, and sugars have been relatively stable. Patient was also found to have iron deficiency anemia in combination with some thrombocytosis. Hemoglobin for the most part has been stable, and he will be maintained on iron supplementation. I will note, his thrombocytosis has worsened throughout hospitalization, but I suspect this is reactive and can be followed closely. He has been maintained on DVT prophylaxis. Patient was hyponatremic as noted above, but this resolved with IV hydration and improved sugar control. Further hospital course to be dictated as an addendum. Dictated by... Hetal Vera M.D. Ovidio TD: 02/23/2017 22:04 JOB #: [id number] ADDENDUM PROCEDURES Repeat application of Integra Bilayer wound Matrix 11.5 x 9.5 cm split-thickness skin graft application x2 proximal measuring 11 x 9 cm and distal measuring 10.5 x 5 cm, and application of wound vac to left lower extremity 26 x 11 cm. Unit #: [id number] #: [id number] Patient: VIC ABDI HOSPITAL COURSE Since last dictation, patient remained for 5 days with the Integra VAC. He went for skin grafting earlier today, but unfortunately, still has some exposed tendon that did not take well to the Integra in the mid-portion of his wound. The patient had skin graft placed in the upper portion of the wound and over the foot, but not in the middle section. Integra was reapplied. At this point, Orthopedics is recommending discharge home keeping the Integra VAC in place for a week and they will bring him in next week to proceed with further skin grafting. In regards to the patient's associated infection, Dr. Lee has seen the patient and recommends oral antibiotics as outlined below. Patient is complaining of pain over the skin graft site. We will try to keep pain control the best we can. He is being discharged today, but I believe does not have a ride home until tomorrow. For the patient's diabetes, his sugars have gone up a bit, and he has received diabetic education. He has not been following the diabetic diet, based upon what I have seen in the room. I have significant concern about his ability to afford insulin long-term given his Medicaid at this point is presumptive, and I am not sure what sort of resources he will have afterwards. I am also concerned about compliance of insulin. Thus, I am going to change him to pills and he will need better compliance of diet on an outpatient basis. DISCHARGE CONDITION Stable. DISCHARGE STATUS Discharge to home with home health and wound vac. DISCHARGE MEDICATIONS 1. Ferrous gluconate 324 mg p.o. b.i.d. with one refill. 2. [place] 5/325 one to two tablets p.o. q.4 hours p.r.n. for pain, number given 55. 3. Zyvox 600 mg p.o. b.i.d. for 14 days. 4. Levaquin 750 mg p.o. daily for 14 days. 5. Glipizide 10 mg p.o. b.i.d. 6. Metformin 1000 mg p.o. b.i.d. *Please note, glipizide and metformin were filled x2. DISCHARGE INSTRUCTIONS Patient was instructed to follow a constant carb diet. He will do Accu-Cheks twice daily at home, at least one meal (1) postprandial and one fasting. He can increase activities as tolerated; however, he is nonweight-bearing on the left lower extremity and should not shower given his wound vac. His left thigh dressing should remain in place until seeing him, follow-up by Orthopedics. FOLLOW UP The patient will be contacted by Dr. Catherine's office in regards to repeat skin grafting next week. Time spent on discharge today, 55 minutes. Dictated by... Unit #: [id number] #: [id number] Patient: VIC ABDI M.D. KEH/yunier TD: 02/27/2017 23:33 JOB #: [id number] TRANSFER OF CARE SUMMARY Page 1 of 1 X Hetal Vera MD X TRANSFER OF CARE SUMMARY
--- NOTE | ~2017-02-11 | EKG ---
PATIENT: VIC ABDI UNIT #: [id number] Ventricular Rate: 115 BPM Atrial Rate: 115 BPM P-R Interval: 158 ms QRS Duration: 104 ms Q-T Interval: 332 ms QTC Calculation(Bezet): 459 ms P [place]: 72 degrees Calculated R [place]: 69 degrees Calculated T [place]: 49 degrees Diagnosis Line: Sinus tachycardia Diagnosis Line: Otherwise normal ECG Diagnosis Line: No previous ECGs available Diagnosis Line: Confirmed by CARLOS WALTERS MD ([id number]) on Diagnosis Line: 02/13/2017 10:33:24 AM INTERPRETING MD: SELENA DOCKERY
--- NOTE | ~2017-02-11 | CO ---
Unit #: [id number] #: [id number] Patient: VIC ABDI [id number] [facility] [address] [place], [place] [address] [id number] I MR#: [id number] NAME: VIC ABDI ROOM: 340 Age: 51 Sex: M Admission Date: 02/12/2017 : 1965 Attending Physician: Hetal Vera M.D. Primary Care Physician: Hanny Primary Care Physician Consultation Date: 02/12/2017 CONSULTATION REPORT REQUESTING SERVICE Medicine. CONSULTING SERVICE Orthopedics. REASON FOR CONSULT Left foot gangrene. CHIEF COMPLAINT Left foot infection. HISTORY OF PRESENTING ILLNESS About five days ago the patient noticed redness to his left foot. He noticed that ever since then the redness and swelling continued to get worse. He presented to the emergency department where he was found to have necrosis over the dorsum of the left foot. Labs at the time were a sodium of 122 and a glucose about 400 with a white blood cell count of 25.8. The patient was admitted to [facility] and Orthopedics was consulted for further intervention to the left foot. PAST MEDICAL HISTORY 1. Adult onset diabetes x11 years. 2. Testicular surgery. ALLERGIES None. HOME MEDICATIONS Metformin and some type of unknown antibiotic. FAMILY HISTORY Patient denies any significant family history. SOCIAL HISTORY The patient is a [place]oc[place] speaker from [place], lives alone, stopped smoking last month, denies any alcohol use. REVIEW OF SYSTEMS A 14-point review of systems was performed with only positives per the HPI. PHYSICAL EXAMINATION Unit #: [id number] #: [id number] Patient: VIC ABDI VITAL SIGNS: Heart rate of 108, respiratory rate of 16, temperature 99 degrees Fahrenheit, O2 sats 99%, blood pressure 123/76. GENERAL: Awake, alert and oriented x3, no acute distress. LEFT LOWER EXTREMITY FOCUSED: Derm: Blistering and necrosis noted to the dorsal forefoot, proximal redness and streaking noted. Significant malodor and drainage also seen with extensive swelling to the left foot and ankle. Neuro: Sensation seems to be diminished. Vascular: DP and PT pulses are palpable with brisk cap fill time to all five digits. Musculoskeletal: Pain with palpation, bogginess and fluctuance noted overlying the dorsal foot suspicious of subcutaneous air. Patient is able to wiggle toes and dorsiflex and plantar flex ankle without pain. DIAGNOSTIC STUDIES LABORATORY: WBC 24.2, hemoglobin 10.7, hematocrit 31.7, sodium 128, potassium 3.4. IMAGING: Images of the left foot show significant soft tissue emphysema dorsally and tracking proximally. ASSESSMENT A 51-year-old diabetic male with left foot wet gangrene and soft tissue emphysema. PLAN Options were discussed with the patient with the merchandise appraiser at bedside. Surgical intervention needs to be done immediately to drain the left foot. Patient was amenable to this. Plan is to make him immediately n.p.o. and take him to surgery this evening for incision and drainage of the left foot. It was made very clear to the patient this is a serious infection, that further surgical intervention is likely needed. Patient verbalized that he understood the gravity of the situation and the ortho team will continue to follow the patient while in the hospital. Thank you for the consult. Dictated by... Lavelle Hurtado M.D. for Carolina Fairchild M.D. LC/sharmila TD: 02/12/2017 22:29 JOB #: [id number] CONSULTATION REPORT Page 1 of 1 X X CONSULTATION REPORT
[2017-02-11 23:32] LABS: BASOPHIL# 0.1 X10e3 (0-0.3); BASOPHIL% 0.2 % (0-2.5); DIFF IND YES; EOSINOPHIL% 0.2 % (0.0-7.0); HEMATOCRIT 35.1 % (38.0-50.0); HEMOGLOBIN 11.9 gm/dL (13.0-16.0); LYMPHOCYTE# 1.4 X10e3 (1.0-3.5); LYMPHOCYTE% 5.3 % (17.0-45.0); MEAN CELL VOLUME 87.9 FL (83-96); MEAN CORPUSCULAR HEMOGLOBIN 29.7 PG (28-34); MEAN CORPUSCULAR HGB CONC 33.8 g/dL (30-36); MONOCYTE# 2.5 X10e3 (0-1.0); MONOCYTE% 9.7 % (3.0-12.0); NEUTROPHIL# 21.8 X10e3 (1.5-7.1); NEUTROPHIL% 84.6 % (40-75); PLATELET COUNT 380 X10e3 (140-420); WHITE BLOOD COUNT 25.8 X10e3 (4.0-10.5)
[2017-02-11 23:48] LABS: ALBUMIN SERUM 2.5 g/dL (3.5-5.0); BILIRUBIN, DIRECT 0.1 mg/dL (0.0-0.2); BILIRUBIN,INDIRECT 0.4 mg/dL (0.0-0.9); BILIRUBIN,TOTAL 0.5 mg/dL (0.2-2.0); CALCIUM SERUM 8.4 mg/dL (8.4-10.2); CREATININE SERUM 0.8 mg/dL (0.6-1.4); GLOM FILT RATE Estimated 103.5 mL/min (>60); PROTEIN TOTAL SERUM 7.9 g/dL (6.0-8.3)
[2017-02-11 23:54] LABS: NUCLEATED RED BLOOD CELL 1 /100 (0); PLATELET ESTIMATE NORMAL (NORMAL)
[2017-02-11 23:55] LABS: RBC NORMAL YES
[2017-02-12 07:31] LABS: BUN/CREATININE RATIO 21.66; CALCIUM SERUM 8.1 mg/dL (8.4-10.2); CREATININE SERUM 0.6 mg/dL (0.6-1.4); GLOM FILT RATE Estimated 116.5 mL/min (>60); POTASSIUM 3.4 mmol/L (3.5-5.1)
[2017-02-12 07:52] LABS: HEMATOCRIT 31.7 % (38.0-50.0); HEMOGLOBIN 10.7 gm/dL (13.0-16.0); MEAN CELL VOLUME 87.3 FL (83-96); MEAN CORPUSCULAR HEMOGLOBIN 29.5 PG (28-34); MEAN CORPUSCULAR HGB CONC 33.8 g/dL (30-36); RED BLOOD COUNT 3.63 X10e (3.90-5.60); RED CELL DISTRIBUTION WIDTH 13.1 % (11.0-15.5); WHITE BLOOD COUNT 24.2 X10e3 (4.0-10.5)
[2017-02-12 15:48] LABS: INR 1.2; PROTHROMBIN TIME (PATIENT) 13.1 SECONDS (10.0-11.7)
[2017-02-13 06:08] LABS: HEMATOCRIT 27.4 % (38.0-50.0); MEAN CELL VOLUME 90.1 FL (83-96); MEAN CORPUSCULAR HEMOGLOBIN 29.6 PG (28-34); MEAN CORPUSCULAR HGB CONC 32.9 g/dL (30-36); MEAN PLATELET VOLUME 8.2 FL (6.5-11.5); RED BLOOD COUNT 3.04 X10e (3.90-5.60); RED CELL DISTRIBUTION WIDTH 13.5 % (11.0-15.5); WHITE BLOOD COUNT 22.4 X10e3 (4.0-10.5)
[2017-02-13 06:41] LABS: BUN/CREATININE RATIO 15.71; CALCIUM SERUM 7.7 mg/dL (8.4-10.2); CREATININE SERUM 0.7 mg/dL (0.6-1.4); GLOM FILT RATE Estimated 109.3 mL/min (>60); MAGNESIUM 1.8 mg/dL (1.6-3.0); PHOSPHOROUS 2.9 mg/dL (2.5-4.6); POTASSIUM 3.9 mmol/L (3.5-5.1)
[2017-02-13 12:49] LABS: IRON SERUM 10 ug/dL (45-182); TOTAL IRON BINDING CAPACITY 116 ug/dL (252-460); TRANSFERRIN 83 mg/dL (180-329); TRANSFERRIN SATURATION 9 % (20-50)
[2017-02-14 03:17] LABS: HEMATOCRIT 27.4 % (38.0-50.0); HEMOGLOBIN 9.3 gm/dL (13.0-16.0); MEAN CELL VOLUME 88.8 FL (83-96); MEAN CORPUSCULAR HGB CONC 33.8 g/dL (30-36); MEAN PLATELET VOLUME 7.9 FL (6.5-11.5); RED BLOOD COUNT 3.09 X10e (3.90-5.60); RED CELL DISTRIBUTION WIDTH 13.5 % (11.0-15.5)
[2017-02-14 03:51] LABS: BUN/CREATININE RATIO 16.66; CALCIUM SERUM 7.5 mg/dL (8.4-10.2); CREATININE SERUM 0.6 mg/dL (0.6-1.4); GLOM FILT RATE Estimated 116.5 mL/min (>60); POTASSIUM 3.8 mmol/L (3.5-5.1)
[2017-02-15 05:47] LABS: HEMATOCRIT 27.9 % (38.0-50.0); HEMOGLOBIN 9.3 gm/dL (13.0-16.0); MEAN CORPUSCULAR HEMOGLOBIN 29.9 PG (28-34); MEAN CORPUSCULAR HGB CONC 33.3 g/dL (30-36); MEAN PLATELET VOLUME 8.1 FL (6.5-11.5); RED BLOOD COUNT 3.1 X10e (3.90-5.60); RED CELL DISTRIBUTION WIDTH 13.4 % (11.0-15.5); WHITE BLOOD COUNT 16.6 X10e3 (4.0-10.5)
[2017-02-15 06:11] LABS: BUN/CREATININE RATIO 11.42; CREATININE SERUM 0.7 mg/dL (0.6-1.4); GLOM FILT RATE Estimated 109.3 mL/min (>60); POTASSIUM 3.7 mmol/L (3.5-5.1)
[2017-02-15 14:57] LABS: URINE APPEARANCE CLEAR; URINE BILIRUBIN NEG (NEG); URINE BLOOD NEG (NEG); URINE COLOR YELLOW; URINE GLUCOSE NEG (NEG); URINE KETONE NEG (NEG); URINE LEUKOCYTE ESTERASE NEG (NEG); URINE NITRATE NEG (NEG); URINE PROTEIN NEG (NEG); URINE SPECIFIC GRAVITY 1.012 (1.003-1.035)
[2017-02-15 15:02] LABS: CULTURE INDICATED? NO
[2017-02-16 05:58] LABS: HEMATOCRIT 29.7 % (38.0-50.0); HEMOGLOBIN 9.7 gm/dL (13.0-16.0); MEAN CELL VOLUME 89.8 FL (83-96); MEAN CORPUSCULAR HEMOGLOBIN 29.5 PG (28-34); MEAN CORPUSCULAR HGB CONC 32.8 g/dL (30-36); RED BLOOD COUNT 3.3 X10e (3.90-5.60); RED CELL DISTRIBUTION WIDTH 13.3 % (11.0-15.5); WHITE BLOOD COUNT 13.9 X10e3 (4.0-10.5)
[2017-02-16 06:29] LABS: BUN/CREATININE RATIO 13.33; CALCIUM SERUM 8.4 mg/dL (8.4-10.2); CREATININE SERUM 0.6 mg/dL (0.6-1.4); GLOM FILT RATE Estimated 116.5 mL/min (>60); POTASSIUM 3.7 mmol/L (3.5-5.1)
[2017-02-17 02:23] LABS: HEMATOCRIT 27.9 % (38.0-50.0); HEMOGLOBIN 9.2 gm/dL (13.0-16.0); MEAN CELL VOLUME 89.8 FL (83-96); MEAN CORPUSCULAR HEMOGLOBIN 29.6 PG (28-34); MEAN CORPUSCULAR HGB CONC 32.9 g/dL (30-36); MEAN PLATELET VOLUME 7.7 FL (6.5-11.5); RED BLOOD COUNT 3.1 X10e (3.90-5.60); RED CELL DISTRIBUTION WIDTH 13.2 % (11.0-15.5); WHITE BLOOD COUNT 13.4 X10e3 (4.0-10.5)
[2017-02-17 02:59] LABS: BUN/CREATININE RATIO 18.33; CALCIUM SERUM 8.2 mg/dL (8.4-10.2); CREATININE SERUM 0.6 mg/dL (0.6-1.4); GLOM FILT RATE Estimated 116.5 mL/min (>60); POTASSIUM 3.9 mmol/L (3.5-5.1)
[2017-02-18 02:45] LABS: BASOPHIL# 0.1 X10e3 (0-0.3); BASOPHIL% 0.5 % (0-2.5); EOSINOPHIL# 0.2 X10e3 (0-0.7); EOSINOPHIL% 1.7 % (0.0-7.0); HEMATOCRIT 27.6 % (38.0-50.0); HEMOGLOBIN 9.1 gm/dL (13.0-16.0); LYMPHOCYTE# 2.3 X10e3 (1.0-3.5); LYMPHOCYTE% 15.5 % (17.0-45.0); MEAN CELL VOLUME 89.6 FL (83-96); MEAN CORPUSCULAR HEMOGLOBIN 29.4 PG (28-34); MEAN CORPUSCULAR HGB CONC 32.8 g/dL (30-36); MEAN PLATELET VOLUME 7.1 FL (6.5-11.5); MONOCYTE# 1.2 X10e3 (0-1.0); MONOCYTE% 8.1 % (3.0-12.0); NEUTROPHIL% 74.2 % (40-75); PLATELET COUNT 602 X10e3 (140-420); RED BLOOD COUNT 3.08 X10e (3.90-5.60); RED CELL DISTRIBUTION WIDTH 13.3 % (11.0-15.5); WHITE BLOOD COUNT 14.8 X10e3 (4.0-10.5)
[2017-02-18 02:59] LABS: DIFF IND NO
[2017-02-18 03:05] LABS: CALCIUM SERUM 7.8 mg/dL (8.4-10.2); CREATININE SERUM 0.9 mg/dL (0.6-1.4); GLOM FILT RATE Estimated 98.5 mL/min (>60); POTASSIUM 4.5 mmol/L (3.5-5.1)
[2017-02-19 02:37] LABS: HEMATOCRIT 27.8 % (38.0-50.0); HEMOGLOBIN 9.4 gm/dL (13.0-16.0); MEAN CELL VOLUME 89.5 FL (83-96); MEAN CORPUSCULAR HEMOGLOBIN 30.1 PG (28-34); MEAN CORPUSCULAR HGB CONC 33.7 g/dL (30-36); MEAN PLATELET VOLUME 7.2 FL (6.5-11.5); RED BLOOD COUNT 3.11 X10e (3.90-5.60); RED CELL DISTRIBUTION WIDTH 13.2 % (11.0-15.5); WHITE BLOOD COUNT 13.6 X10e3 (4.0-10.5)
[2017-02-19 03:05] LABS: BUN/CREATININE RATIO 13.33; CALCIUM SERUM 8.5 mg/dL (8.4-10.2); CREATININE SERUM 0.6 mg/dL (0.6-1.4); GLOM FILT RATE Estimated 116.5 mL/min (>60)
[2017-02-20 03:25] LABS: HEMATOCRIT 31.3 % (38.0-50.0); HEMOGLOBIN 10.3 gm/dL (13.0-16.0); MEAN CELL VOLUME 90.5 FL (83-96); MEAN CORPUSCULAR HEMOGLOBIN 29.7 PG (28-34); MEAN CORPUSCULAR HGB CONC 32.8 g/dL (30-36); MEAN PLATELET VOLUME 6.8 FL (6.5-11.5); RED BLOOD COUNT 3.46 X10e (3.90-5.60); RED CELL DISTRIBUTION WIDTH 13.3 % (11.0-15.5); WHITE BLOOD COUNT 12.4 X10e3 (4.0-10.5)
[2017-02-21 03:30] LABS: HEMOGLOBIN 9.8 gm/dL (13.0-16.0); MEAN CELL VOLUME 89.4 FL (83-96); MEAN CORPUSCULAR HEMOGLOBIN 29.3 PG (28-34); MEAN CORPUSCULAR HGB CONC 32.8 g/dL (30-36); MEAN PLATELET VOLUME 6.8 FL (6.5-11.5); RED BLOOD COUNT 3.35 X10e (3.90-5.60); RED CELL DISTRIBUTION WIDTH 13.4 % (11.0-15.5); WHITE BLOOD COUNT 13.6 X10e3 (4.0-10.5)
[2017-02-22 04:13] LABS: HEMATOCRIT 29.1 % (38.0-50.0); HEMOGLOBIN 9.6 gm/dL (13.0-16.0); MEAN CELL VOLUME 88.6 FL (83-96); MEAN CORPUSCULAR HEMOGLOBIN 29.3 PG (28-34); MEAN CORPUSCULAR HGB CONC 33.1 g/dL (30-36); MEAN PLATELET VOLUME 6.4 FL (6.5-11.5); RED BLOOD COUNT 3.28 X10e (3.90-5.60); RED CELL DISTRIBUTION WIDTH 13.1 % (11.0-15.5); WHITE BLOOD COUNT 11.3 X10e3 (4.0-10.5)
[2017-02-22 04:42] LABS: ALBUMIN SERUM 2.4 g/dL (3.5-5.0); BILIRUBIN,TOTAL 0.6 mg/dL (0.2-2.0); BUN/CREATININE RATIO 13.75; CALCIUM SERUM 9.1 mg/dL (8.4-10.2); CREATININE SERUM 0.8 mg/dL (0.6-1.4); GLOM FILT RATE Estimated 103.5 mL/min (>60); POTASSIUM 4.1 mmol/L (3.5-5.1); PROTEIN TOTAL SERUM 7.7 g/dL (6.0-8.3)
[2017-02-23 03:37] LABS: BASOPHIL# 0.1 X10e3 (0-0.3); BASOPHIL% 0.5 % (0-2.5); EOSINOPHIL# 0.3 X10e3 (0-0.7); EOSINOPHIL% 2.9 % (0.0-7.0); HEMATOCRIT 29.3 % (38.0-50.0); HEMOGLOBIN 9.8 gm/dL (13.0-16.0); LYMPHOCYTE# 2.9 X10e3 (1.0-3.5); LYMPHOCYTE% 29.6 % (17.0-45.0); MEAN CORPUSCULAR HEMOGLOBIN 30.1 PG (28-34); MEAN CORPUSCULAR HGB CONC 33.4 g/dL (30-36); MEAN PLATELET VOLUME 6.9 FL (6.5-11.5); MONOCYTE# 0.9 X10e3 (0-1.0); MONOCYTE% 8.8 % (3.0-12.0); NEUTROPHIL# 5.8 X10e3 (1.5-7.1); NEUTROPHIL% 58.2 % (40-75); PLATELET COUNT 639 X10e3 (140-420); RED BLOOD COUNT 3.25 X10e (3.90-5.60); RED CELL DISTRIBUTION WIDTH 13.3 % (11.0-15.5); WHITE BLOOD COUNT 9.9 X10e3 (4.0-10.5)
[2017-02-23 03:38] LABS: DIFF IND NO
[2017-02-24 03:50] LABS: BASOPHIL# 0.1 X10e3 (0-0.3); BASOPHIL% 0.7 % (0-2.5); EOSINOPHIL# 0.3 X10e3 (0-0.7); HEMATOCRIT 29.3 % (38.0-50.0); HEMOGLOBIN 9.8 gm/dL (13.0-16.0); LYMPHOCYTE# 3.3 X10e3 (1.0-3.5); LYMPHOCYTE% 33.1 % (17.0-45.0); MEAN CELL VOLUME 88.9 FL (83-96); MEAN CORPUSCULAR HEMOGLOBIN 29.6 PG (28-34); MEAN CORPUSCULAR HGB CONC 33.3 g/dL (30-36); MEAN PLATELET VOLUME 6.4 FL (6.5-11.5); MONOCYTE# 0.8 X10e3 (0-1.0); MONOCYTE% 7.9 % (3.0-12.0); NEUTROPHIL# 5.4 X10e3 (1.5-7.1); NEUTROPHIL% 55.3 % (40-75); PLATELET COUNT 600 X10e3 (140-420); RED CELL DISTRIBUTION WIDTH 13.3 % (11.0-15.5); WHITE BLOOD COUNT 9.8 X10e3 (4.0-10.5)
[2017-02-24 03:51] LABS: DIFF IND NO
[2017-02-26 02:54] LABS: HEMATOCRIT 29.2 % (38.0-50.0); MEAN CELL VOLUME 88.2 FL (83-96); MEAN CORPUSCULAR HEMOGLOBIN 30.1 PG (28-34); MEAN CORPUSCULAR HGB CONC 34.1 g/dL (30-36); MEAN PLATELET VOLUME 6.4 FL (6.5-11.5); RED BLOOD COUNT 3.31 X10e (3.90-5.60); RED CELL DISTRIBUTION WIDTH 13.3 % (11.0-15.5); WHITE BLOOD COUNT 10.4 X10e3 (4.0-10.5)
[2017-02-26 03:23] LABS: CALCIUM SERUM 8.9 mg/dL (8.4-10.2); CREATININE SERUM 0.6 mg/dL (0.6-1.4); GLOM FILT RATE Estimated 116.5 mL/min (>60); POTASSIUM 3.9 mmol/L (3.5-5.1)
[2017-02-27] MEDS ORDERED: ACCU-CHECK SOF1 EACH MC (11:23)
[2017-03-05] MEDS ORDERED: NOVOLOG100 U/ML (11:17)
[2017-03-05] MEDS ORDERED: METFORMIN HCL1000 M1 PO (11:20)
[2017-03-05] MEDS ORDERED: FERROUS GLUCON324 M1 PO (11:21)
[2017-03-05] MEDS ORDERED: GLUCOTROL10 MG PO (11:21)
[2017-03-05] MEDS ORDERED: LEVAQUIN750 MG PO (11:22)
[2017-03-05] MEDS ORDERED: ZYVOX600 MG PO (11:22)
[2017-03-05] MEDS ORDERED: HYDROCODON-ACE1 EAC7 PO (11:24)
[2017-04-23] MEDS ORDERED: KEFLEX PO (13:04)
== END 2017-02-27 12:50 | disposition home health service (06) | DRG 853 ==
LOC: CED 21:59 → C4C 02-12 01:00 → C3A PCU 02-12 01:00 → CEDOF 02-12 01:00 → CED 02-12 01:03 → CEDOF 02-12 01:03 → C3A PCU 02-12 01:03 → CEDOF 02-12 03:02 → C3A PCU 02-12 03:02 → C2A 02-14 17:50 → C4C 02-16 17:50
PROVIDERS: Emergency Medicine; Internal Medicine; Orthopaedic Surgery
PROC: 0JBP0ZZ Excision of Left Lower Leg Subcutaneous Tissue and Fascia, Open Approach (ICD-10-PCS; 2017-02-12)
PROC: 0J9R0ZZ Drainage of Left Foot Subcutaneous Tissue and Fascia, Open Approach (ICD-10-PCS; 2017-02-12)
PROC: 0Y6U0Z0 Detachment at Left 3rd Toe, Complete, Open Approach (ICD-10-PCS; 2017-02-12)
PROC: 0JBR0ZZ Excision of Left Foot Subcutaneous Tissue and Fascia, Open Approach (ICD-10-PCS; principal; 2017-02-12 18:30)
PROC: 0JBP0ZZ Excision of Left Lower Leg Subcutaneous Tissue and Fascia, Open Approach (ICD-10-PCS; 2017-02-14)
PROC: 0Y6Y0Z0 Detachment at Left 5th Toe, Complete, Open Approach (ICD-10-PCS; 2017-02-17)
PROC: 0Y6W0Z0 Detachment at Left 4th Toe, Complete, Open Approach (ICD-10-PCS; 2017-02-17)
PROC: 0JBP0ZZ Excision of Left Lower Leg Subcutaneous Tissue and Fascia, Open Approach (ICD-10-PCS; 2017-02-17)
PROC: 0Y6N0Z9 Detachment at Left Foot, Partial 1st Ray, Open Approach (ICD-10-PCS; 2017-02-19)
PROC: 0Y6N0ZB Detachment at Left Foot, Partial 2nd Ray, Open Approach (ICD-10-PCS; 2017-02-19)
PROC: 0JBP0ZZ Excision of Left Lower Leg Subcutaneous Tissue and Fascia, Open Approach (ICD-10-PCS; 2017-02-21)
PROC: 05HD33Z Insertion of Infusion Device into Right Cephalic Vein, Percutaneous Approach (ICD-10-PCS; 2017-02-24)
PROC: 0HBJXZZ Excision of Left Upper Leg Skin, External Approach (ICD-10-PCS; 2017-02-26)
PROC: 0HRLX74 Replacement of Left Lower Leg Skin with Autologous Tissue Substitute, Partial Thickness, External Approach (ICD-10-PCS; 2017-02-26 07:30)
DX: A41.9 Sepsis, unspecified organism (principal); M72.6 Necrotizing fasciitis; E11.52 Type 2 diabetes mellitus with diabetic peripheral angiopathy with gangrene; E11.42 Type 2 diabetes mellitus with diabetic polyneuropathy; E87.1 Hypo-osmolality and hyponatremia; L02.612 Cutaneous abscess of left foot; E11.65 Type 2 diabetes mellitus with hyperglycemia; Z79.84 Long term (current) use of oral hypoglycemic drugs; M65.9 Synovitis and tenosynovitis, unspecified; D50.9 Iron deficiency anemia, unspecified; D47.3 Essential (hemorrhagic) thrombocythemia
CPT/HCPCS: 36415; 71010; 73630; 80048; 80053; 80076; 80202; 81003; 82607; 82947; 83036; 83540; 83550; 83605; 83735; 84100; 84443; 85025; 85027; 85610; 85652; 87040; 87070; 87075; 87077; 87186; 87205; 88305; 88311; 93005; 94010; 96365; 97110; 97116; 97161; 97166; 97530; 97535; 99285; G8978-GP; G8979-GP; G8987-GO; G8988-GO; J0171; J0330; J0692; J1170; J1650; J1815; J2175; J2250; J2270; J2370; J2405; J2543; J3010; J3370; Q4104

== ENCOUNTER → 2017-03-05 | Day surgery (SDC) | payer OTHER ==
[~2017-03-05] MED LIST: ACCU-CHECK SOF1 EACH MC; FERROUS GLUCON324 M1 PO; GLUCOTROL10 MG PO; HYDROCODON-ACE1 EAC7 PO; KEFLEX PO; LEVAQUIN750 MG PO; METFORMIN HCL1000 M1 PO; NOVOLOG100 U/ML; ZYVOX600 MG PO
== END | disposition home or self-care (01) ==
LOC: CSUR 08:32 → CPACUOF 09:11 → CSUR 09:11
DX: S91.302A Unspecified open wound, left foot, initial encounter (principal); M72.6 Necrotizing fasciitis; E11.9 Type 2 diabetes mellitus without complications; Z79.84 Long term (current) use of oral hypoglycemic drugs; Z79.899 Other long term (current) drug therapy; Z98.890 Other specified postprocedural states
CPT/HCPCS: 82947; 87070; 87075; 87205; J0690; J2250; J2270; J2370; J2405; J3010

== ENCOUNTER → 2017-03-12 | Day surgery (SDC) | payer OTHER ==
--- NOTE | ~2017-03-12 | OR ---
Unit #: [id number] #: [id number] Patient: VIC ABDI [id number] [address] [place], [place] [address] [id number] MR#: [id number] NAME: VIC ABDI ROOM: Date of Procedure: 03/12/2017 Admission Date: 03/12/2017 Surgeon: Rich Catherine M.D. : 1965 Attending Physician: Rich Catherine M.D. OPERATIVE REPORT PREOPERATIVE DIAGNOSIS Left distal tibial wound, status post debridement of necrotizing fasciitis. POSTOPERATIVE DIAGNOSIS Left distal tibial wound, status post debridement of necrotizing fasciitis. PROCEDURES PERFORMED 1. Application of split-thickness skin graft to left foot in tibial wound, measuring 6 cm x 4 cm and 3 x 3 cm. 2. Application of Integra wound matrix bilayer, measuring 8 x 10 cm. 3. Wound VAC application 8 x 26 cm. STENOGRAPHER SECRETARY Montse Azul APRN, UTILITY WORKER [employer] INDICATIONS FOR PROCEDURE Mr. Markham now returns to the operating room today for repeat VAC change and possible skin grafting over the area of previously applied Integra. DESCRIPTION OF PROCEDURE The patient was identified in the preoperative holding area. The operative site was marked. Preoperative antibiotics were administered. The patient was brought to the operating room and placed supine on the operating table. A general anesthetic was induced. The patient was positioned into a semi-lateral position. The wound VAC was then removed. He previously had 100% take of his initial skin grafts. These were again inspected and had good early maturation. The distal aspect of the wound has good take of the previously applied extra Integra. This area was now really amenable for skin grafting. The area of concern over the extensor tendons on the dorsum of the ankle to the extensor retinaculum was inspected. The Integra silicone layer was slowly removed. We had excellent take medially and laterally. In the central portion of the extensor tendons, there was approximately 50% take. We have good graft take up to and just surrounding the edges of the tendons. There was one area around the extensor retinaculum, which did not take as well. The wound was irrigated, and no further debridement was required. A decision was made to proceed with skin grafting in the remaining distal portion of the wound. The area was marked out on the thigh for harvesting the skin graft. We used a 2 inch guard to harvest a graft of Unit #: [id number] #: [id number] Patient: VIC ABDI approximately 0.14 thickness. The graft was then meshed with a one-to-one mesher. This was then secured distally in an area measuring 6 x 4 cm utilizing a combination of odalys and 3-0 chromic gut suture. The second area measuring 3 x 3 was grafted as well again using odalys and 3-0 chromic gut. The extensor retinaculum in the surrounding areas which I did not take. Integra were pie-crusted with a 15-blade knife to enhance vascularization. The new Integra graft was open, and secured in place with odalys. The smaller graft was going to be insufficient and covering all the affected areas. The skin grafts were then covered again with Adaptic. The VAC sponges were then sized and cut to fit the defect. This measured 8 x 26 cm. This was then secured with Ioban dressing. The suction pad was then secured, and the wound VAC hooked up. We achieved a good seal. DISPOSITION Stable to the recovery room. POSTOPERATIVE PLAN The patient will return next 03/21/2017 to the office for wound inspection. Dictated by... Charanjit Vora/kiki TD: 03/12/2017 13:14 JOB #: [id number] OPERATIVE REPORT Page 1 of 1 X Rich Catherine MD PROCEDURE OPERATIVE NOTE
[2017-03-12 08:59] LABS: BASOPHIL% 0.3 % (0-2.5); EOSINOPHIL# 0.6 X10e3 (0-0.7); HEMATOCRIT 35.7 % (38.0-50.0); HEMOGLOBIN 12.4 gm/dL (13.0-16.0); LYMPHOCYTE% 32.8 % (17.0-45.0); MEAN CELL VOLUME 89.8 FL (83-96); MEAN CORPUSCULAR HEMOGLOBIN 31.1 PG (28-34); MEAN CORPUSCULAR HGB CONC 34.6 g/dL (30-36); MEAN PLATELET VOLUME 6.8 FL (6.5-11.5); MONOCYTE# 0.7 X10e3 (0-1.0); MONOCYTE% 7.5 % (3.0-12.0); NEUTROPHIL# 4.9 X10e3 (1.5-7.1); NEUTROPHIL% 53.4 % (40-75); PLATELET COUNT 227 X10e3 (140-420); RED BLOOD COUNT 3.98 X10e (3.90-5.60); RED CELL DISTRIBUTION WIDTH 15.2 % (11.0-15.5); WHITE BLOOD COUNT 9.2 X10e3 (4.0-10.5)
[2017-03-12 09:00] LABS: DIFF IND NO
== END | disposition home or self-care (01) ==
LOC: CSUR 07:46
PROVIDERS: Orthopaedic Surgery
DX: S91.302A Unspecified open wound, left foot, initial encounter (principal); E11.42 Type 2 diabetes mellitus with diabetic polyneuropathy; Z87.891 Personal history of nicotine dependence; Z79.84 Long term (current) use of oral hypoglycemic drugs; Z79.899 Other long term (current) drug therapy; Z98.890 Other specified postprocedural states
CPT/HCPCS: 82947; 85025; J0171; J0690; J1885; J2250; J2270; J2765; Q4104